=== PATIENT | female | born 1955 | race Caucasian/White ===

== ENCOUNTER → 2020-04-12 | Outpatient (CLI) | payer OTHER, BC | LOC: COL.LAB 14:55 | DX: R19.7 Diarrhea, unspecified (principal) ==

== ENCOUNTER → 2020-04-29 | Outpatient (CLI) | payer BC, MEDICARE, OTHER ==
[2020-04-29 13:03] LABS: CLOSTRIDIUM DIFF A/B NEG; CLOSTRIDIUM DIFF A/B INTERP No C.diff present
== END ==
LOC: COL.LAB 11:36
PROVIDERS: Physician Assistant
DX: Z79.899 Other long term (current) drug therapy (principal)